=== PATIENT | female | born 1990 ===

== ENCOUNTER 2024-04-01 17:11 | Outpatient (CLI) ==
[~2024-04-01] VITALS: Ht 167.6 cm; Wt 97.0 kg
[2024-04-01] MEDS ORDERED: ZOLO100T PO (17:34)
[2024-04-01] MEDS ORDERED: CLAR10CA3 PO (17:34)
[2024-04-01] MEDS ORDERED: FERR325T3 PO (17:34)
[2024-04-01] MEDS ORDERED: COLA100C5 PO (17:34)
[2024-04-01] MEDS ORDERED: PRENTAB9 PO (17:34)
[2024-04-01 17:37] VITALS: BP 118/60
== END 2024-04-01 18:27 | disposition home or self-care (01) ==
LOC: M LDO 17:11
PROVIDERS: ATTEND Obstetrics & Gynecology
DX: O26.893 Other specified pregnancy related conditions, third trimester (principal); N89.8 Other specified noninflammatory disorders of vagina; Z3A.35 35 weeks gestation of pregnancy
CPT/HCPCS: 59025; 76815; G0463